=== PATIENT | female | born 2000 | race Caucasian/White ===

== ENCOUNTER 2020-06-17 23:05 | Emergency (ER) | payer BC ==
--- NOTE | 2020-06-17 23:36 | EDM.PDOC ---
ED HPI GENERAL MEDICAL PROBLEM - General Chief Complaint: Abdominal Pain Stated Complaint: , PAIN Time Seen by Provider: 06/17/20 23:09 - History of Present Illness INITIAL COMMENTS - FREE TEXT/NARRATIVE: HISTORY AND PHYSICAL: History of present illness: This 19-year-old female is a prima with last menstrual period being May 14 and is about 4 weeks by dates. Patient states that she has been having pelvic cramping for the last 4 hours. She went to another outside facility at [facility] was evaluated and was found to have bacterial vaginosis. This is been a chronic problem for her in the past. Her other past medical history includes remote chlamydia treated with antibiotics, bacterial vaginosis, ovarian cyst, kidney stones, and she is in a monogamous relationship with her boyfriend who she plans to have the baby with. She denies any urinary symptoms. She says the cramping is on and off and has worsened and she came for another opinion. She does not know her blood type. She is allergic to azithromycin. She reports that she had STI testing a few weeks ago up to a month ago which was negative. Review of systems: A 10-point review of systems, other than pertinent positives and negatives as stated per HPI, is otherwise negative. Past medical history: As per history of present illness and as reviewed below otherwise noncontributory. Surgical history: As per history of present illness and as reviewed below otherwise noncontributory. Social history: No reported history of drug or alcohol abuse. Family history: As per history of present illness and as reviewed below otherwise n oncontributory. Physical exam: VITAL SIGNS: Reviewed. GENERAL: Appears concerned about her condition but not in acute distress. HEAD: No signs of head trauma. EYES: Pupils are equal. Extraocular motions intact. EARS: Hearing grossly intact. MOUTH: Oropharynx is normal. NECK: No adenopathy, no JVD. CHEST: Chest with clear breath sounds bilaterally. No wheezes, rales, or rhonchi. CARDIAC: Regular rate and rhythm. Normal S1 and S2, without murmurs, gallops, or rubs. VASCULAR: Peripheral pulses normal and equal in all extremities. ABDOMEN: Soft, without detectable tenderness. No sign of distention. No rebound or guarding, and no masses palpated. MUSCULOSKELETAL: Good range of motion of all major joints. Extremities without clubbing, cyanosis or edema. NEUROLOGIC EXAM: Alert and oriented x 3. No focal sensory or motor deficits. Speech normal. Follows commands. PSYCHIATRIC: Mood normal. SKIN: No rash or lesions. Initial Differential Diagnosis & Plan: Cramping from bacterial vaginosis, ongoing chlamydia infection, torsion, ectopic , urolithiasis, endometritis The patient has a chronic history of bacterial vaginosis and was recently diagnosed with this. She is metronidazole on a regular basis. After speaking with her and reviewing the labs from the outside facility her H&H was normal her renal function was normal and they did not check a beta-hCG or blood type. The patient is not currently having vaginal bleeding but given her unknown status and the cramping I will check her Rh status today. I will also evaluate the patient for gonorrhea chlamydia and do a pelvic exam. I will order a pelvic ultrasound. Definitive disposition and diagnosis as appropriate pending reevaluation and review of above. pelvic Pain Score (Numeric/FACES): 7 - Related Data Allergies Allergy/AdvReac Type Severity Reaction Status Date / Time azithromycin [From Zithromax] Allergy Difficulty Verified 06/17/20 23:33 Breathing Home Meds: Home Meds . [No Known Home Meds] 06/17/20 [History] ED ROS GENERAL - Review of Systems Review Of Systems: See Below (noted) ED EXAM - Physical Exam Exam: See Below (noted) ED Add Procedures - Additional/Other Procedure(s) Procedure(s) (Free Text): Procedure Note: Point of Care Bedside Echocardiogram (limited echo) Self-performed and read; images archived and saved Location: Chest Probe: Curvilinear - Cardiac contour identified - No obvious wall motion abnormalities - No obvious cardiomegaly - No pericardial fluid seen. No Tamponade Impression: 1. No tamponade or effusion Signed by: Nikolas Gómez MD LIMITED ABDOMINAL ULTRASOUND: Self-performed and read; images archived and saved Indication: Trauma and / or Hypotension 1. No Free fluid seen in the hepatorenal space (Morison's Pouch) 2. No Free Fluid seen in the suprapubic region (Pelvis) 3. No Free Fluid seen in the splenorenal space (LUQ) FINDINGS: No evidence of intraperitoneal free fluid IMPRESSION: Negative FAST exam. Signed by Nikolas Gómez MD PROCEDURE NOTE: Limited OB / Pelvic Ultrasound (transabdominal) Indication: Confirm a live IUP All images obtained and evaluated by me. Images archived and saved. Findings: 1. Uterus Identified 2. No significant Free Fluid Noted 3. No clear intrauterine identified Interpretation: No IUP identified. Signed by Nikolas Gómez M.D. Course - Vital Signs Last Recorded V/S: Last Vital Signs Temp 97.4 F 06/17/20 23:25 Pulse 98 06/17/20 23:37 Resp 16 06/17/20 23:25 BP 114/72 06/17/20 23:37 Pulse Ox 98 06/17/20 23:37 - Orders/Labs/Meds Orders: Active Orders 24 hr Category Date Time Status CHLAMYDIA AND GONORRHEA BY TMA Stat Lab 06/17/20 23:31 Received Labs: Laboratory Tests 06/17/20 06/17/20 Range/Units 23:51 23:51 HCG, Quant 936.0 mIU/mL Blood Type A POSITIVE - Re-Assessments/Exams Free Text/Narrative Re-Assessment/Exam: 06/18/20 01:59 Did well in the emergency department. No free fluid in the abdomen. ABO Rh+. The patient's beta hCG is 967. She should return in 48 hours to redraw this. I have given her clear instructions to return in the morning of 20 June. We will redraw it at that time. She is otherwise doing well. Gonorrhea chlamydia swab is pending. My diagnostic impression: 1. Threatened miscarriage 2. No evidence of intrauterine 3. ABO Rh+ (blood type A+) Departure - Departure Time of Disposition: 01:57 Disposition: Home, Self-Care 01 Clinical Impression: Blood type A+, Threatened miscarriage in early - Discharge Information *PRESCRIPTION DRUG MONITORING PROGRAM REVIEWED*: Not Applicable *COPY OF PRESCRIPTION DRUG MONITORING REPORT IN PATIENT PIYUSH: Not Applicable Instructions: Threatened Miscarriage Referrals: PCP,None [Primary Care Provider] - Forms: ED Department Discharge Additional Instructions: The following information is given to patients seen in the emergency department who are being discharged to home. This information is to outline your options for follow-up care. We provide all patients seen in our emergency department with a follow-up referral. The need for follow-up, as well as the timing and circumstances, are variable depending upon the specifics of your emergency department visit. If you don't have a primary care physician on staff, we will provide you with a referral. We always advise you to contact your personal physician following an emergency department visit to inform them of the circumstance of the visit and for follow-up with them and/or the need for any referrals to a consulting specialist. The emergency department will also refer you to a specialist when appropriate. This referral assures that you have the opportunity for follow-up care with a specialist. All of these measure are taken in an effort to provide you with optimal care, which includes your follow-up. Thank you for coming to the [facility] urgency department for your care today. It was Dr. Gómez's pleasure to take care of you. [facility] [address] [place] [id number] [facility] [address] [place] [id number] Your beta hCG is 967. This is your hormone level. Your blood type is A positive (+). Your ultrasound does not show a clear intrauterine . This means you could have a threatened miscarriage, a outside of the uterus, or a normal . It is unclear. You need to return in 48 hours. The morning of June 20 to the emergency department to have your hormone level (beta-hCG) redrawn to ensure that it doubles. Please return to the emergency department immediately for uncontrolled pain, passing out, or any other concerns. We are always happy to see you. Under all circumstances we always encourage you to contact your private ph ysician who remains a resource for coordinating your care. When calling for follow-up care, please make the office aware that this follow-up is from your recent emergency room visit. If for any reason you are refused follow-up, please contact the [facility] Emergency Department at and asked to speak to the emergency department charge nurse. Sepsis Event Note (ED) - Evaluation Sepsis Screening Result: No Definite Risk - Focused Exam Vital Signs: Vital Signs Temp Pulse Resp BP Pulse Ox 06/17/20 23:37 98 114/72 98 06/17/20 23:25 97.4 F 99 16 129/76 99 - My Orders Last 24 Hours: My Active Orders 06/17/20 23:31 CHLAMYDIA AND GONORRHEA BY TMA Stat - Assessment/Plan Last 24 Hours: My Active Orders 06/17/20 23:31 CHLAMYDIA AND GONORRHEA BY TMA Stat
--- NOTE | 2020-06-18 00:54 | US ---
INDICATION: Cramping TECHNIQUE: Ultrasound OB pelvis transvaginal. Real-time mike-scale imaging of the pelvis was performed. COMPARISON: None available FINDINGS: The endometrium measures 1.2 cm, demonstrating inhomogeneous echotexture. A small ovoid hypoechoic focus is seen in the left aspect of the fundal endometrium, measuring approximately 7 x 3 mm, nonspecific. Otherwise, a definite intrauterine gestational sac is not seen. The right ovary measures 2.4 x 1.9 x 4.4 cm, containing a 2.6 x 2.1 cm heterogeneous area which could represent a corpus luteum. The left ovary measures 2.8 x 1.4 x 2.5 cm. Ovarian Doppler flow is not well evaluated. There is small free fluid in the cul-de-sac. IMPRESSION: No definite intrauterine gestational sac. A 7 mm ovoid hypoechoic focus in the left aspect of the endometrium is nonspecific. The findings could represent an early intrauterine gestation, an ectopic gestation or a spontaneous . Recommend correlation with beta hCG levels and a short-term follow-up study. Dictated by Bradley Ly MD @ Jun 18 2020 12:46AM Signed by Dr. Bradley Ly @ Jun 18 2020 12:52AM
[2020-06-19 12:07] LABS: C.TRACHOMATIS BY TMA Negative (Negative); N.GONORRHOEAE BY TMA Negative (Negative)
== END 2020-06-18 02:05 | disposition home or self-care (01) ==
LOC: MW.ED 23:05
DX: O20.0 Threatened abortion (principal); O36.0910 Maternal care for other rhesus isoimmunization, first trimester, not applicable or unspecified; Z88.1 Allergy status to other antibiotic agents; Z3A.01 Less than 8 weeks gestation of pregnancy
CPT/HCPCS: 36415; 76817; 76817-26; 84702; 86900; 86901; 87491; 87591; 99284; 99284-25

== ENCOUNTER 2020-07-25 13:19 | Emergency (ER) | payer BC ==
[2020-07-25] MEDS ORDERED: diphenhydrAMINE 50 MG/ML SDV IVPUSH ONE (13:29)
[2020-07-25] MEDS ORDERED: Prochlorperazine 10 MG/2 ML SDV IVPUSH ONE (13:29)
[2020-07-25 14:09] LABS: BLOOD UREA NITROGEN,BUN 6 mg/dL (7.0-18.0); CARBON DIOXIDE,CO2 24.9 mmol/L (21.0-32.0); CHLORIDE,CL 101 mmol/L (98-107); GLUCOSE RANDOM 84 mg/dL (74-106); POTASSIUM,K 3.6 mmol/L (3.5-5.1); SODIUM,NA 135 mmol/L (136-145)
[2020-07-25] MEDS ORDERED: Dextrose 5%-0.9% NaCl 1,000 ML IV SCH (14:30)
--- NOTE | 2020-07-25 16:23 | EDM.PDOC ---
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 The patient states that she is not experiencing any abdominal pain, vaginal bleeding, or vaginal discharge. She denies any fevers or chills. She states that she has been having nausea and vomiting and dry heaving which is nonbloody and nonbilious. She states that she intermittently tolerates p.o. She denies any hematemesis or bilious emesis. She denies any diarrhea. Denies any chest pain or firmness of breath or fevers. She states that she is taking Zofran at home in addition to Unisom at night to sleep however this does not seem to be helping. She states that she feels fatigued and came to the emergency department because of concern for dehydration. She denies any other symptoms. REVIEW OF SYSTEMS: Constitutional: Denies fever, chills. Eyes: Denies eye pain Ears, Nose, Mouth, & Throat: Denies earache Cardiovascular: Denies chest pain Respiratory: Denies shortness of breath Gastrointestinal: Positive for nausea and vomiting. Denies diarrhea, abdominal pain, melena, hematochezia, hematemesis, bilious emesis Genitourinary: Denies hematuria, vaginal bleeding, vaginal discharge, pelvic pain Skin:Denies a rash Neurological: Denies blurred vision Psychiatric: Denies depression PAST MEDICAL HISTORY: As per history of present illness and as reviewed below otherwise noncontributory. SURGICAL HISTORY: As per history of present illness and as reviewed below otherwise noncontributory. LMP: May 14, 2020 SOCIAL HISTORY: As per history of present illness and as reviewed below ot herwise noncontributory. FAMILY HISTORY: As per history of present illness and as reviewed below otherwise noncontributory. EXAMINATION OF ORGAN SYSTEMS/BODY AREAS: Constitutional: Blood pressure was 123/81, heart rate 89, respiratory rate 16 with an oxygen saturation of 89% on room air. Temperature 35.8 General: Overall well-appearing woman who is in no acute distress and is not actively vomiting. Psychiatric: Appropriate mood and affect. Eyes: No scleral icterus or conjunctival erythema ENMT: Mildly dry mucous membranes. No pharyngeal erythema. No tonsillar swelling or exudates. Uvula was midline. Cardiovascular: Regular, rate, and rhythm. No gallops, murmurs, or rubs. Bilateral upper extremity pulses symmetric and intact. No peripheral edema. No JVD. Respiratory: Lungs clear to auscultation bilaterally. No wheezes, rales, or rhonchi. Gastrointestinal: Soft, non-tender, non-distended. Normoactive bowel sounds Genitourinary: No suprapubic tenderness Musculoskeletal: Normal range of motion. Skin: No lesions or abrasions. Neurological: Alert, GCS 15 MEDICAL DECISION MAKING AND COURSE IN THE ED WITH INTERPRETATION/REVIEW OF DIAGNOSTIC STUDIES: This is a 19-year-old woman who is approximately 11 weeks who presents to the emergency department with vomiting. At this time I suspect vomiting in versus hyperemesis gravidarum. We will provide th e patient with Compazine and Benadryl and 1 L of D5 normal saline. Will obtain labs including CBC and CMP to evaluate for any abnormalities. I do not believe any imaging is indicated as the patient is asymptomatic otherwise. We will reevaluate for improvement. Laboratory: CBC is unremarkable. CMP reveals hyponatremia at 135 otherwise unremarkable. Urinalysis was a clean catch and was negative for leukocyte esterase, negative for nitrites, and negative for blood. Interpretation: negative. On reevaluation, the patient had no further episodes of vomiting and felt better. At this time I did discuss with her that she should continue using Zofran for nausea relief at home. I discussed the importance of maintaining adequate hydration. She is to return for any new or worsening symptoms. She was amenable to discharge at this time and had no further questions. DISPOSITION: The patient will follow up with her primary manager house as needed CONDITION: Fair PROCEDURES: None FINAL IMPRESSION(S)/DIAGNOSES: 1. Acute vomiting in Glenn Cooney M.D. 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: Psychiatric History: Reports: Anxiety, Bipolar, Depression - Past Surgical History HEENT Surgical History: Reports: None Social & Family History - Family History Family Medical History: No Pertinent Family History - Tobacco Use Tobacco Use Status *Q: Never Tobacco User Second Hand Smoke Exposure: No - Caffeine Use Caffeine Use: Reports: None - Recreational Drug Use Recreational Drug Use: No ED ROS GENERAL - Review of Systems Review Of Systems: See Below ED EXAM - Physical Exam Exam: See Below Course - Vital Signs Last Recorded V/S: Last Vital Signs Temp 36.8 C 07/25/20 16:29 Pulse 95 07/25/20 16:29 Resp 15 07/25/20 16:29 BP 107/60 07/25/20 16:29 Pulse Ox 99 07/25/20 16:29 - Orders/Labs/Meds Labs: Laboratory Tests 07/25/20 07/25/20 07/25/20 Range/Units 13:37 13:37 15:00 WBC 10.78 (4.0-11.0) K/uL RBC 4.16 L (4.30-5.90) M/uL Hgb 12.8 (12.0-16.0) g/dL Hct 37.6 (36.0-46.0) % MCV 90.4 (80.0-98.0) fL MCH 30.8 (27.0-32.0) pg MCHC 34.0 (31.0-37.0) g/dL RDW Std Deviation 43.7 (28.0-62.0) fl RDW Coeff of Abel 13 (11.0-15.0) % Plt Count 244 (150-400) K/uL MPV 8.80 (7.40-12.00) fL Neut % (Auto) 74.5 (48.0-80.0) % Lymph % (Auto) 18.9 (16.0-40.0) % [place] % (Auto) 5.8 (0.0-15.0) % Eos % (Auto) 0.7 (0.0-7.0) % Baso % (Auto) 0.1 (0.0-1.5) % Neut # (Auto) 8.0 H (1.4-5.7) K/uL Lymph # (Auto) 2.0 (0.6-2.4) K/uL [place] # (Auto) 0.6 (0.0-0.8) K/uL Eos # (Auto) 0.1 (0.0-0.7) K/uL Baso # (Auto) 0.0 (0.0-0.1) K/uL Nucleated RBC % 0.0 /100WBC Nucleated RBCs # 0 K/uL Sodium 135 L (136-145) mmol/L Potassium 3.6 (3.5-5.1) mmol/L Chloride 101 (98-107) mmol/L Carbon Dioxide 24.9 (21.0-32.0) mmol/L BUN 6 L (7.0-18.0) mg/dL Creatinine 0.6 (0.6-1.0) mg/dL Est Cr Clr Drug Dosing TNP Estimated GFR (MDRD) > 60.0 ml/min Glucose 84 (74-106) mg/dL Calcium 9.0 (8.5-10.1) mg/dL Total Bilirubin 0.2 (0.2-1.0) mg/dL AST 17 (15-37) IU/L ALT 25 (14-63) IU/L Alkaline Phosphatase 52 (46-116) U/L Total Protein 7.6 (6.4-8.2) g/dL Albumin 3.8 (3.4-5.0) g/dL Globulin 3.8 (2.6-4.0) g/dL Albumin/Globulin Ratio 1.0 (0.9-1.6) Urine Color YELLOW Urine Appearance CLEAR Urine pH 6.0 (5.0-8.0) Ur Specific [place] 1.010 (1.001-1.035) Urine Protein NEGATIVE (NEGATIVE) mg/dL Urine Glucose (UA) >=1000 (NEGATIVE) mg/dL Urine Ketones NEGATIVE (NEGATIVE) mg/dL Urine Occult Blood NEGATIVE (NEGATIVE) Urine Nitrite NEGATIVE (NEGATIVE) Urine Bilirubin NEGATIVE (NEGATIVE) Urine Urobilinogen 0.2 (<2.0) EU/dL Ur Leukocyte Esterase NEGATIVE (NEGATIVE) Meds: Medications Discontinued Medications Generic Name Dose Route Start Last Admin Trade Name Freq PRN Reason Stop Dose Admin Diphenhydramine HCl 50 mg 07/25/20 13:29 07/25/20 13:37 Benadryl IVPUSH 07/25/20 13:30 50 mg ONETIME ONE Administration Dextrose/Sodium Chloride 1,000 mls @ 999 mls/hr 07/25/20 14:30 07/25/20 14:28 Dextrose 5%-Normal Saline IV 999 mls/hr ASDIRECTED DAYDAY Administration Prochlorperazine Edisylate 10 mg 07/25/20 13:29 07/25/20 13:37 Compazine IVPUSH 07/25/20 13:30 10 mg ONETIME ONE Administration Departure - Departure Time of Disposition: 16:22 Disposition: Home, Self-Care 01 Condition: Fair Clinical Impression: Hyperemesis arising during - Discharge Information Instructions: Hyperemesis Gravidarum Referrals: PCP,None [Primary Care Provider] - Forms: ED Department Discharge Additional Instructions: The patient is informed of any results of their evaluation and diagnostic workup and all questions are answered. They are given discharge instructions and return precautions. The patient is stable for discharge. The patient states they understand and agree with the plan and that they will return if their symptoms get worse or if they have any new concerns. The following information is given to patients seen in the emergency department who are being discharged to home. This information is to outline your options for follow-up care. We provide all patients seen in our emergency department with a follow-up referral. The need for follow-up, as well as the timing and circumstances, are variable depending upon the specifics of your emergency department visit. If you don't have a primary care physician on staff, we will provide you with a referral. We always advise you to contact your personal physician following an emergency department visit to inform them of the circumstance of the visit and for follow-up with them and/or the need for any referrals to a consulting specialist. The emergency department will also refer you to a specialist when appropriate. This referral assures that you have the opportunity for follow-up care with a specialist. All of these measure are taken in an effort to provide you with optimal care, which includes your follow-up. Under all circumstances we always encourage you to contact your private physician who remains a resource for coordinating your care. When calling for follow-up care, please make the office aware that this follow-up is from your recent emergency room visit. If for any reason you are refused follow-up, please contact the [facility] Emergency Department at and asked to speak to the emergency department charge nurse. Today your evaluated on an emergent basis. Please continue to take the antinausea medication prescribed by your manager house as needed for nausea and vomiting. Please continue to maintain adequate fluid intake. Please follow-up with your manager house this week. Return for any new or worsening symptoms. [facility] [address] [place] [id number] [facility] [address] [place] [id number] Sepsis Event Note (ED) - Evaluation Sepsis Screening Result: No Definite Risk - Focused Exam Vital Signs: Vital Signs Temp Pulse Resp BP Pulse Ox 07/25/20 16:29 36.8 C 95 15 107/60 99 07/25/20 13:26 35.8 C L 89 16 123/81 99
== END 2020-07-25 16:35 | disposition home or self-care (01) ==
LOC: MW.ED 13:19
DX: O21.9 Vomiting of pregnancy, unspecified (principal); Z88.1 Allergy status to other antibiotic agents; Z3A.11 11 weeks gestation of pregnancy
CPT/HCPCS: 36415; 80053; 81003; 85025; 96374; 96375; 99284; J0780; J1200; J7042; 99283

== ENCOUNTER 2020-08-05 02:19 | Emergency (ER) | payer BC ==
--- NOTE | 2020-08-05 05:44 | EDM.PDOC ---
ED HPI GENERAL MEDICAL PROBLEM - General Stated Complaint: 12 WKS AND BLEEDING Time Seen by Provider: 08/05/20 02:30 Source of Information: Reports: Patient - History of Present Illness INITIAL COMMENTS - FREE TEXT/NARRATIVE: History of present illness: [] Patient is about 12 weeks . At 9 PM she had intercourse. At that time she began to bleed. Intermittently she is bled quite a bit. At 12 AM it got heavier. Remains intermittent but at times heavy. She has no orthostatic symptoms no diaphoresis no lightheadedness. She has no pain. 1P0 Ab0. #4 she had an ultrasound that showed a 6-week 6-day IUP. She says she has a plus blood type. [place] the history and physical were done and patient taken care of during computer downtime and I do not have access to the verification of this prior historical comments. She does have OB follow-up with Dr. Fitch. Review of systems: As per history of present illness and below otherwise all systems reviewed and negative. Past medical history: As per history of present illness and as reviewed below otherwise noncontributory. Surgical history: As per history of present illness and as reviewed below otherwise noncontributory. Social history: No reported history of drug or alcohol abuse. Family history: As per history of present illness and as reviewed below otherwise noncontributory. Physical exam: Constitutional - well developed, well-nourished and in no acute distress HEENT - normocephalic, no evidence of trauma - external nose and mouth normal - no mass in neck and no JVD - mucosae moist EYES - full EOM, PERRL, no icterus - no evidence of inflammation, injection, or drainage Respiratory - no respiratory distress, equal bilateral expansion, lungs clear to auscultation and no abnormal lung sounds Cardiovascular - Regular Rhythm with S1 and S2 appreciated and no murmur, gallop or rub. GI - abdomen soft without distension or organomegaly - normal bowel sounds - no guard or rebound Musculoskeletal no gross deformity of long bones or joints - no tenderness, swelling or edema Neurologic - Alert and oriented times four - CN II-XII grossly intact - motor sensory and coordination symmetrically normal Psychiatric - appropriate mood and affect with normal thought content Hematologic - No petechiae or purpura - mucosa appropriate color and sclera not pale - normal nail bed color and refill Integument - no rash or evidence of trauma - normal turgor Diagnostics: [] Therapeutics: [] Impression: [] Plan: [] Definitive disposition and diagnosis as appropriate pending reevaluation and review of above. 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 ED EXAM, GENERAL - Physical Exam Exam: See Below Free Text/Narrative:: My physical exam is in the HPI Course - Vital Signs Text/Narrative:: Patient remained stable and her vital signs stable with no orthostatic symptoms and was able to get up and move about. She did have a little more bleeding after the transvaginal ultrasound. Ultrasound revealed a complete placenta previa with an 11-week 6-day viable fetus. She was discussed with Dr. Howe and she said that she felt the patient should follow in the clinic. Patient was discharged in satisfactory condition. Departure - Departure Time of Disposition: 04:13 Disposition: Home, Self-Care 01 Condition: Good Clinical Impression: Placenta previa, Threatened miscarriage - Discharge Information Instructions: Threatened Miscarriage, Placenta Previa Additional Instructions: [facility] [address] [place] [id number] [facility]'s [facility] [address] [place] [id number] The following information is given to patients seen in the emergency department who are being discharged to home. This information is to outline your options for follow-up care. We provide all patients seen in our emergency department with a follow-up referral. The need for follow-up, as well as the timing and circumstances, are variable depending upon the specifics of your emergency department visit. If you don't have a primary care physician on staff, we will provide you with a referral. We always advise you to contact your personal physician following an emergency department visit to inform them of the circumstance of the visit and for follow-up with them and/or the need for any referrals to a consulting specialist. The emergency department will also refer you to a specialist when appropriate. This referral assures that you have the opportunity for follow-up care with a specialist. All of these measure are taken in an effort to provide you with optimal care, which includes your follow-up. Under all circumstances we always encourage you to contact your private physician who remains a resource for coordinating your care. When calling for follow-up care, please make the office aware that this follow-up is from your recent emergency room visit. If for any reason you are refused follow-up, please contact the [facility] Emergency Department at and asked to speak to the emergency department charge nurse.
--- NOTE | 2020-08-06 12:03 | US ---
EXAM DATE: 08/05/20 PATIENT'S AGE: 19 Patient: JASPREET PINTO Facility: [facility] : 08/18/2002 Study: US-OB Pelvis -08/05/2020 4:04:17 AM Ordering Physician: MEGAN Final Report: INDICATION: with vaginal bleeding TECHNIQUE: Ultrasound OB pelvis transabdominal and transvaginal. Real-time mike-scale imaging of the pelvis was performed. COMPARISON: None FINDINGS: Clinical Age: 11 weeks 6 days (ELA 02/18/2021) Sonographic imaging demonstrates a single living intrauterine gestation. The embryo demonstrates a regular cardiac rate measuring 163 beats per minute. The embryo`s crown rump length measurement of 5.2 cm corresponds to a gestational age of 11 weeks 6 days which is concordant with clinical age. There is a normal appearing yolk sac. There are no gross abnormalities noted within the embryo at this early state of development. Placenta overlies the cervix although this can be seen in early gestational age. This can be reassessed at the time of survey. There is no sign of perigestational hemorrhage. The ovaries are of normal size. There are no suspicious fluid collections noted in the cul-de-sac. Cervix long and closed measuring 3.9 centimeters. IMPRESSION: 1. Single live intrauterine gestation with a clinical age of 11 weeks 6 days. 2. Cervix is long and closed. 3. Subjectively normal amniotic fluid. 4. Placenta overlies the internal os, however this can be seen in early gestational age. Reassessment at the time of survey suggested. Dictated by Farhad Ellis MD @ Aug 05 2020 4:43AM Signed by: Farhad Ellis MD @08/05/2020 4:48:03 AM (Electronic Signature) Report Signed by Proxy. ANTHONY
== END 2020-08-05 04:20 | disposition home or self-care (01) ==
LOC: MW.ED 02:19
DX: O20.0 Threatened abortion (principal); O44.01 Complete placenta previa NOS or without hemorrhage, first trimester; Z88.1 Allergy status to other antibiotic agents; Z3A.11 11 weeks gestation of pregnancy
CPT/HCPCS: 36415; 76801; 76801-26; 84702; 85025; 99283; 99284-25